=== PATIENT | female | born 2005 | race African-American/Black ===

== ENCOUNTER 2023-03-08 14:40 | Emergency (ER) | payer BC, OTHER ==
[2023-03-08] MEDS ORDERED: Ibuprofen 200 MG TAB ONE (15:57)
== END 2023-03-08 15:59 | disposition home or self-care (01) ==
LOC: CSHERS 14:40
DX: S20.212A Contusion of left front wall of thorax, initial encounter (principal); S20.222A Contusion of left back wall of thorax, initial encounter; Y04.0XXA Assault by unarmed brawl or fight, initial encounter
CPT/HCPCS: 71046; 72070